=== PATIENT | female | born 1995 | race African-American/Black ===

== ENCOUNTER 2023-03-24 17:42 | Inpatient (IN) | payer MEDICAID ==
[~2023-03-24] VITALS: Ht 162.6 cm; Wt 88.2 kg
[2023-03-25] VITALS (17 sets, daily range): BP systolic 106–146; BP diastolic 65–102; PULSE 85–104; TEMP 97.7–98.1
[2023-03-25] MEDS ORDERED: PRENATAL TABLET PO (06:26)
[2023-03-25] MEDS ORDERED: IRON 27 MG PO (06:27)
[2023-03-25 07:07] LABS: BASO % 0.2 % (0.0-2.0); EOS % 0.5 % (0.0-4.0); GRAN # 4.9 K/mm3 (1.4-6.5); GRAN % 74.4 % (42.2-75.2); HEMATOCRIT 41.3 % (37.0-47.0); HEMOGLOBIN 13.5 g/dl (12.5-16.0); LYMPH # 1.1 K/mm3 (1.2-3.4); LYMPH % 16.3 % (20.0-51.0); MEAN CELL VOLUME 90 fl (80.0-100.0); MEAN CORPUSCULAR HEMOGLOBIN 30 pg (27-31); MEAN CORPUSCULAR HGB CONC 33 g/dl (33.0-37.0); MEAN PLATELET VOLUME 9.7 fl (7.4-10.4); MONO # 0.5 K/mm3 (0.1-0.6); MONO % 7.8 % (1.7-9.3); PLATELET COUNT 328 K/mm3 (130-400); RED BLOOD COUNT 4.57 M/mm3 (4.10-5.30)
[2023-03-26 00:15] VITALS: BP 136/90; PULSE 90; TEMP 98.3
[2023-03-26 05:39] VITALS: BP 119/80; PULSE 93; TEMP 98
[2023-03-26 08:45] VITALS: BP 132/82; PULSE 93; TEMP 97.9
[2023-03-26] MEDS ORDERED: ROXICODONE 55 MG/TAB PO (08:46)
[2023-03-26] MEDS ORDERED: IBU600 MG PO (08:46)
--- NOTE | 2023-03-26 09:35 | NUR ---
Initial visit; Patient thanked [employer] Operator for offering congratulations for the of her son. [employer] Operator offered a "Special [place]" which seemed to please "Mom."
[2023-03-26 17:00] VITALS: BP 144/95; PULSE 105; TEMP 98.2
[2023-03-26 19:42] VITALS: BP 144/87; PULSE 95; TEMP 98.2
[2023-03-27 08:17] VITALS: BP 134/95; PULSE 98; TEMP 98.5
[2023-03-27 16:00] VITALS: BP 132/94; PULSE 84; TEMP 98.4
[2023-03-27 19:30] VITALS: BP 135/89; PULSE 84; TEMP 97.8
[2023-03-28 07:00] VITALS: BP 137/90; PULSE 85; TEMP 97.7
== END 2023-03-28 10:36 | disposition home or self-care (01) | DRG 788 ==
LOC: OB 03-25 05:45
PROVIDERS: ADMIT Obstetrics & Gynecology
PROC: 10D00Z1 Extraction of Products of Conception, Low, Open Approach (ICD-10-PCS; principal; 2023-03-25)
PROC: 0UB10ZZ Excision of Left Ovary, Open Approach (ICD-10-PCS; 2023-03-25)
DX: O32.2XX0 Maternal care for transverse and oblique lie, not applicable or unspecified (principal); O99.824 Streptococcus B carrier state complicating childbirth; Z3A.39 39 weeks gestation of pregnancy; Z37.0 Single live birth; O40.3XX0 Polyhydramnios, third trimester, not applicable or unspecified; O99.02 Anemia complicating childbirth; D64.9 Anemia, unspecified; D25.9 Leiomyoma of uterus, unspecified; O34.13 Maternal care for benign tumor of corpus uteri, third trimester; O34.83 Maternal care for other abnormalities of pelvic organs, third trimester; N83.202 Unspecified ovarian cyst, left side
CPT/HCPCS: J0171; J0665; J0690; J1885; J2175; J2270; J2371; J2405; J2590; J7120

== ENCOUNTER 2023-04-13 11:28 | Emergency (ER) | payer MEDICAID ==
[~2023-04-13] VITALS: Ht 162.6 cm; Wt 88.2 kg
[~2023-04-13 11:28] MED LIST: IBU600 MG PO; IRON 27 MG PO; PRENATAL TABLET PO; ROXICODONE 55 MG/TAB PO
[2023-04-13 11:34] VITALS: PULSE 85; TEMP 97.9
[2023-04-13] MEDS ORDERED: NORCO 325 MG-51 TAB PO ×2 (12:43→12:57)
[2023-04-13] MEDS ORDERED: VOLTAREN GEL 1%1 TU TP (12:54)
[2023-04-13 13:07] VITALS: BP 151/110
== END 2023-04-13 13:07 | disposition home or self-care (01) ==
LOC: COL.ER 11:28
DX: O99.893 Other specified diseases and conditions complicating puerperium (principal); M79.671 Pain in right foot